=== PATIENT | male | born 1950 | race Caucasian/White ===

== ENCOUNTER 2019-08-13 | Observation (INO) | payer MEDICARE ==
[~2019-08-13] VITALS: Ht 185.4 cm; Wt 91.6 kg
[2019-08-13] VITALS (8 sets, daily range): BP systolic 130–180; BP diastolic 69–85
--- NOTE | 2019-08-13 | NUR ---
RECEIVED PATIENT FROM [facility]. PATIENT IS AAOX3. RESP EVEN AND UNLABORED. NO ACUTE DISTRESS AT THIS TIME. PATIENT DENIES OF ANY PAIN OR DISCOMFORT AT THIS TIME. ORIENTED TO ROOM. ASSESSMENT DONE. CALL LIGHT WITHIN REACH. INSTRUCT PATIENT TO CALL FOR ASSISTANCE. PATIENT IS NPO AT MIDNIGHT. BED LOW/LOCKED. CONTINUE TO MONITOR CLOSELY
--- OUTSIDE RECORDS SUMMARY | 2019-08-13 00:03 | XMS REPORT ---
Author Author [facility] Address Unknown Phone Unavailable Care Team Providers Care Prepper Name Role Phone Unavailable Unavailable Problems This patient has no known problems. Allergies, Adverse Reactions, Alerts This patient has no known allergies or adverse reactions. Medications This patient has no known medications. Results Test Description Test Time Test Comments Text Results Atomic Results Result Comments Urine Culture 2019-07-26 08:14:14 No growth at 2 days. Urinalysis Microscopic 2019-07-25 12:14:55 UA WBC (test code=UA WBC) 11-20 /HPF 0-5 UA RBC (test code=UA RBC) 5-10 /HPF 0-4 UA Bacteria (test code=UA Bacteria) 1+ /HPF Negative UA Yeast (test code=UA Yeast) Few /HPF None Urinalysis with Culture, if [id number] 12:09:05* Test Item Value Reference Range Comments UA Color (test code=UA Color) Yellow Yellow UA Appear (test code=UA Appear) Clear Clear UA pH (test code=UA pH) 6.0 5.0-8.5 UA Spec Grav (test code=UA Spec Grav) 1.015 SGU 1.005-1.030 UA Glucose (test code=UA Glucose) Negative Negative UA Bili (test code=UA Bili) Negative Negative UA Ketones (test code=UA Ketones) Negative Negative UA Blood (test code=UA Blood) 2+ Negative UA Protein (test code=UA Protein) 1+ Negative UA Urobilinogen (test code=UA Urobilinogen) 2 EU/dL >0.2 UA Nitrite (test code=UA Nitrite) Negative Negative UA Leuk Est (test code=UA Leuk Est) 2+ Negative UA Micro Ind? (test code=UA Micro Ind?) Indicated Not Indicated
[2019-08-13] MEDS ORDERED: ACCUPRIL20 MG PO (00:38)
[2019-08-13] MEDS ORDERED: PANTOPRAZOLE SO40 MG PO (00:38)
[2019-08-13 05:09] LABS: BASOPHILS % 0.3 % (0.0-1.0); EOSINOPHILS # (AUTO) 0.3 (0.0-0.4); EOSINOPHILS % 5.1 % (0.0-6.0); HEMATOCRIT 38.3 % (38.2-49.6); HEMOGLOBIN 13.1 g/dL (14.0-18.0); LYMPHOCYTES # (AUTO) 1.8 (1.0-3.2); LYMPHOCYTES % 27.2 % (18.0-39.1); MEAN CORPUSCULAR HGB CONC 34.2 g/dL (31-35); MEAN CORPUSCULAR VOLUME 90.8 fL (81-99); MONOCYTES # (AUTO) 0.6 (0.2-0.8); MONOCYTES % 8.5 % (4.4-11.3); NEUTROPHILS # (AUTO) 3.8 (2.1-6.9); NEUTROPHILS % 58.7 % (38.7-80.0); PLATELET COUNT 172 x10e3/uL (140-360); RED BLOOD COUNT 4.22 x10e6/uL (4.3-5.7); RED CELL DISTRIBUTION WIDTH 13.2 % (11.7-14.4)
[2019-08-13 05:28] LABS: ALANINE AMINOTRANSFERASE 36 IU/L (0-55); ALBUMIN 3.6 g/dL (3.5-5.0); ALBUMIN/GLOBULIN RATIO 1.4 (0.8-2.0); ALKALINE PHOSPHATASE 76 IU/L (40-150); ANION GAP 9.4 mmol/L (8-16); BLOOD UREA NITROGEN 14 mg/dL (7-26); BUN/CREATININE RATIO 13 (6-25); CALCIUM 8.6 mg/dL (8.4-10.2); CARBON DIOXIDE 25 mmol/L (22-29); CHLORIDE 112 mmol/L (98-107); CREATININE, SERUM 1.07 mg/dL (0.72-1.25); EST GLOMERULAR FILTRATION RATE > 60 ML/MIN (60-); GLUCOSE 108 mg/dL (74-118); POTASSIUM 3.4 mmol/L (3.5-5.1); SODIUM 143 mmol/L (136-145)
--- NOTE | 2019-08-13 05:53 | NUR ---
PAGED DR KHANNA FOR CONSULT.
--- NOTE | 2019-08-13 05:59 | NUR ---
SPOKE TO DR KHANNA ABOUT THE CONSULTATION.
[2019-08-13] MEDS: CEFTRIAXONE SOD 1 GM/NS 50 ML 50 ML IV SCH (06:17)
[2019-08-13] MEDS ORDERED: SODIUM CHLORIDE 0.9% 250ML 250 ML ONE (06:22)
[2019-08-13] MEDS: KETOROLAC TROMETHAMINE 30 MG/ML VIAL IM PRN ×2 (06:29→19:27)
--- NOTE | 2019-08-13 08:00 | NUR ---
Patient straining all urine to collect stone if any pass. patient aware to call nurse if anything collects in the strainer. urine sent to lab for studies.
[2019-08-13] MEDS: PANTOPRAZOLE SOD 40 MG TABEC PO SCH (08:28)
[2019-08-13] MEDS: QUINAPRIL HCL 20 MG TAB PO SCH ×2 (08:28→17:04)
[2019-08-13] MEDS: HYDROMORPHONE 1MG/1ML INJ IV PRN ×2 (08:55→21:44)
--- NOTE | 2019-08-13 09:03 | Consultation ---
DATE OF CONSULTATION: 08/13/2019 Urology Consultation Consultation is called by [facility]. CHIEF COMPLAINT AND REASON FOR CONSULTATION: Kidney stone, ureteral stone. 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 He has never had any imaging. Upon presenting to the outpatient [facility], he is complaining of left-sided flank pain, burning, and difficulty urinating. Urinalysis did show positive urinary tract infection. A CAT scan revealed 7 mm distal left ureteral calculus with mild hydronephrosis, bilateral lower pole 6 mm renal calculi, bilateral renal cysts. The patient was admitted for pain control and infections. Denied fevers. No chills. Denied nausea or vomiting. PAST MEDICAL HISTORY: Hypertension, strep in the wound in the right kidney, multiple kidney stones, status post prior kidney surgery, status post cholecystectomy. MEDICATIONS: Please see MAR. ALLERGIES: NKDA. SOCIAL HISTORY: Denied smoking or drinking. FAMILY HISTORY: Denied urologic stones or malignancies. REVIEW OF SYSTEMS: Noncontributory other than problems mentioned above for 12-organ systems. PHYSICAL EXAMINATION: GENERAL: An elderly male, in no acute distress. VITAL SIGNS: Currently temperature 96.7, pulse 57, respirations 18, and blood pressure 179/83. HEENT: Sclerae anicteric. NECK: Supple. BACK: Without costovertebral angle tenderness bilaterally. ABDOMEN: Soft. It is nontender. No palpable mass. No palpable hernias. No palpable adenopathy. : Normal external genitalia. EXTREMITIES: No edema. Normal extremities. PSYCH: Alert. Mood appropriate. SKIN: Intact. Normal color. PERTINENT LABORATORY DATA: CT scan revealing a right lower pole 6 mm stone, left lower pole 6 mm stone, left distal 7 mm ureteral calculus, left hydronephrosis, bilateral renal cysts. Urinalysis; positive nitrite, positive leukocyte, positive blood. Sodium 143, potassium 3.4, chloride 112, bicarb 25, BUN 14, creatinine 1.07, and glucose 108. Hemoglobin 13, hematocrit 38, platelet count 132,000, and white cell count 6460. IMPRESSION: 1. Bilateral renal calculi. 2. Left ureteral calculi. 3. Left hydronephrosis. 4. Urinary tract infection. 5. Microscopic hematuria. 6. Hypertension. 7. Hypokalemia. 8. Hyperchloremia. 9. Bilateral renal cysts. PLAN: Employ brief trial passage. Should this fail, hydration and IV antibiotics. Should this fail, the patient may need an emergent ureteroscopy versus stent placement. MD JOSÉ Ruby/MODL /[id number]
[2019-08-13 09:38] LABS: CLARITY,URINE CLOUDY (CLEAR); COLOR,URINE YELLOW (YELLOW); LEUKOCYTE ESTERASE ,URINE LARGE (NEGATIVE); NITRITE,URINE POSITIVE (NEGATIVE); PROTEIN,URINE DIPSTICK >=300 (NEGATIVE)
[2019-08-13 09:39] LABS: BILIRUBIN,URINE SMALL (NEGATIVE); KETONES,URINE TRACE (NEGATIVE); URINE UROBILINOGEN 1 mg/dL (0.2 - 1)
[2019-08-13 09:41] LABS: BACTERIA,URINE FEW /HPF; EPITHELIAL CELLS,URINE FEW /LPF; RBC,URINE >50 /HPF (0-5); WBC,URINE (MAN) >50 /HPF (0-5)
--- NOTE | 2019-08-13 10:00 | NUR ---
ASSESSMENT: No concerns Pt relieved to be in hospital and receiving treatment. Pt states he was returning from [place] when he became ill. Intervention: Provided hospitality and empathic listening. Facilitate identification of emotions and illness review. Outcome: Provided information on how to contact bakery team leader, if needed. No need to follow at this time. KARINE CROSS Sales Systems Engineer Spiritual Care Department O: [phone]
[2019-08-14] VITALS (8 sets, daily range): BP systolic 128–189; BP diastolic 68–102
[2019-08-14] MEDS ORDERED: SODIUM CHLORIDE 0.9% 250ML 250 ML ONE (05:26)
[2019-08-14] MEDS: CEFTRIAXONE SOD 1 GM/NS 50 ML 50 ML IV SCH (05:57)
[2019-08-14 05:58] LABS: BASOPHILS % 0.3 % (0.0-1.0); EOSINOPHILS # (AUTO) 0.4 (0.0-0.4); EOSINOPHILS % 7.4 % (0.0-6.0); HEMOGLOBIN 12.7 g/dL (14.0-18.0); LYMPHOCYTES # (AUTO) 1.3 (1.0-3.2); LYMPHOCYTES % 22.2 % (18.0-39.1); MEAN CORPUSCULAR HEMOGLOBIN 31.8 pg (28-32); MEAN CORPUSCULAR HGB CONC 34.3 g/dL (31-35); MEAN CORPUSCULAR VOLUME 92.5 fL (81-99); MONOCYTES # (AUTO) 0.4 (0.2-0.8); MONOCYTES % 7.6 % (4.4-11.3); NEUTROPHILS # (AUTO) 3.6 (2.1-6.9); NEUTROPHILS % 62.3 % (38.7-80.0); PLATELET COUNT 154 x10e3/uL (140-360); RED CELL DISTRIBUTION WIDTH 13.2 % (11.7-14.4)
[2019-08-14 06:33] LABS: ALANINE AMINOTRANSFERASE 39 IU/L (0-55); ALBUMIN 3.4 g/dL (3.5-5.0); ALBUMIN/GLOBULIN RATIO 1.4 (0.8-2.0); ALKALINE PHOSPHATASE 70 IU/L (40-150); ANION GAP 7.6 mmol/L (8-16); BLOOD UREA NITROGEN 17 mg/dL (7-26); BUN/CREATININE RATIO 16 (6-25); CALCIUM 8.4 mg/dL (8.4-10.2); CARBON DIOXIDE 27 mmol/L (22-29); CHLORIDE 111 mmol/L (98-107); CREATININE, SERUM 1.06 mg/dL (0.72-1.25); EST GLOMERULAR FILTRATION RATE > 60 ML/MIN (60-); GLUCOSE 99 mg/dL (74-118); POTASSIUM 3.6 mmol/L (3.5-5.1); SODIUM 142 mmol/L (136-145)
--- NOTE | 2019-08-14 07:00 | NUR ---
BEDSIDE SHIFT REPORT RECEIVED FROM [employer] DEVELOPER NURSE. PT DENIES NEEDS AT THIS TIME.
[2019-08-14] MEDS: PANTOPRAZOLE SOD 40 MG TABEC PO SCH (08:40)
[2019-08-14] MEDS: QUINAPRIL HCL 20 MG TAB PO SCH ×2 (08:40→17:40)
[2019-08-14] MEDS: KETOROLAC TROMETHAMINE 30 MG/ML VIAL IM PRN ×2 (08:41→20:37)
--- NOTE | 2019-08-14 10:03 | Diagnostic Imaging Report ---
EXAM: Abdomen Radiograph 1 View(s) INDICATION: ^pain ^[id number] ^0935 ^Y COMPARISON: None FINDINGS: No abnormalities in the lower chest. No lines or tubes. Normal volume of stool in the colon. No dilated loops of bowel. No pneumoperitoneum. No abnormal abdominal calcifications.. No acute osseous abnormality. IMPRESSION: No acute abdominal radiographic abnormality. Signed by: Ramon Cr MD on 08/14/2019 10:00 AM
[2019-08-14] MEDS ORDERED: IOPAMIDOL 300MG/ML 50ML INFUS..BTL IV ONE (14:30)
[2019-08-14] MEDS ORDERED: DEXAMETHASONE SOD PHOS INJ 4 MG/ML VIAL ONE (15:14)
[2019-08-14] MEDS ORDERED: SEVOFLURANE INHAL SOLN 250 ML PEN BTL ONE (15:14)
[2019-08-14] MEDS ORDERED: ONDANSETRON HCL INJ 2MG/ML 2ML 2 MG/ML VIAL ONE (15:14)
[2019-08-14] MEDS ORDERED: PROPOFOL IV EMULSION 10 MG/ML 20 ML VIAL ONE (15:14)
[2019-08-14] MEDS ORDERED: LIDOCAINE HCL 2% LOCAL INJ 5 ML SDV VIAL INJ ONE (15:14)
[2019-08-14] MEDS ORDERED: FENTANYL CITRATE/PF 100MCG/2 ML INJ ONE ×2 (15:19→16:01)
--- NOTE | 2019-08-14 17:46 | Operative Report ---
DATE OF PROCEDURE: 08/14/2019 SURGEON: Lencho Oswald MD PREOPERATIVE DIAGNOSES: 1. Hematuria. 2. Left-sided hydronephrosis. 3. Left ureteral calculus. 4. Bilateral renal calculi. POSTOPERATIVE DIAGNOSES: 1. Hematuria. 2. Left-sided hydronephrosis. 3. Left ureteral calculus. 4. Bilateral renal calculi. PROCEDURES: 1. Cystourethroscopy with left ureteral stent placement. 2. Interpretation of retrograde pyelography. ANESTHESIA: General. ESTIMATED BLOOD LOSS: Minimal. COMPLICATIONS: None. INDICATIONS FOR PROCEDURE: Mr. Langford is a very pleasant 68-year-old male with acute severe left-sided flank pain. Denied fevers. No chills. Denied nausea or vomiting. The patient has been admitted to the hospital, requiring IV narcotics and has failed a trial of passage. Due to the risk of blocked kidney,infections,renal failure even we feel that the procedure iis immediately medically necessary to correct a serious medical condition. Without immediate performance of the procedure there would be serious risk of adverse medical consequences even possibly . He and I had a long discussion about alternatives, risks, and benefits including doing nothing, ureteroscopy, stent placement, percutaneous surgery or open surgery. He voiced understanding of the options, alternatives, risks, and benefits, and elected to proceed. PROCEDURE IN DETAIL: After informed consent was obtained, the patient was taken to the operative suite, placed in supine on the operating table, underwent general anesthesia by the Anesthesia Service, placed in dorsal lithotomy position and sterilely prepped and draped for cystoscopy. A 22.5-Nicaraguan cystoscope was inserted per urethra. There was massive trilobar prostatic hypertrophy with enlarged median lobe. With moderate difficulty, the left ureteral orifice was catheterized. Retrograde pyelogram was performed revealing a very large 10 x 7 mm distal ureteral calculus with J hooking in the distal ureter. The catheter was advanced over a guidewire and retrograde pyelogram was performed revealing a dense obstruction. With moderate difficulty, this guidewire was catheterized proximally. Upon doing this, purulent material shot out of the ureteral orifice indicating infected setting. A 7 x 28 cm ureteral stent was deployed with a coil in renal pelvis and coil in the gallbladder. Approximately, 4 inches string was tied so that it could be dressed in the urethra and not disturb the prostatic bed. The bladder was drained. The patient was awakened from anesthesia and transported to the recovery room in excellent condition. Supervision of fluoroscopy and interpretation of retrograde pyelography: I was present for the entire procedure and supervised fluoroscopy. There was no radiologist present. Attention was turned towards the left ureteral orifice and catheterized. Retrograde pyelogram was performed revealing J hooking distally, 10 x 7 mm distal ureteral calculus, proximal hydronephrosis, bilateral renal calculi. Lencho Oswald MD ES/MODL /[id number]
[2019-08-15] VITALS: BP 160/77
[2019-08-15 04:00] VITALS: BP 195/97
[2019-08-15] MEDS: KETOROLAC TROMETHAMINE 30 MG/ML VIAL IM PRN (05:00)
[2019-08-15] MEDS ORDERED: TAMSULOSIN HCL 0.4 MG CAP PO SCH ×2 (05:45→21:00)
[2019-08-15] MEDS: CEFTRIAXONE SOD 1 GM/NS 50 ML 50 ML IV SCH (05:55)
--- NOTE | 2019-08-15 07:00 | NUR ---
BEDSIDE SHIFT REPORT RECEIVED FROM CREDIT OPERATIONS PROCESSOR NURSE. PT DENIES NEEDS AT THIS TIME.
[2019-08-15 07:51] VITALS: BP 160/88
[2019-08-15 08:06] VITALS: BP 160/88
[2019-08-15] MEDS: QUINAPRIL HCL 20 MG TAB PO SCH ×2 (08:56→17:23)
[2019-08-15] MEDS: PANTOPRAZOLE SOD 40 MG TABEC PO SCH (08:56)
[2019-08-15 11:05] VITALS: BP 110/82
[2019-08-15 15:25] VITALS: BP 105/62
[2019-08-15] MEDS ORDERED: FLOMAX0.4 MG PO (17:09)
[2019-08-15] MEDS ORDERED: BACTRIM DS TAB1 EACH PO (17:10)
--- NOTE | 2019-08-16 05:48 | Discharge Summary ---
DISCHARGE DIAGNOSIS: Left kidney stone, status post stents. HISTORY OF PRESENT ILLNESS/HOSPITAL COURSE: The patient is a gentleman, who presented with some left flank pain and was found to have bilateral kidney stones, but one 7 mm stone in the left ureter was causing significant pain as well as potential evidence of urinary tract infection. So, the patient was brought and given a trial of passage, which did not work, so patient then went to the OR under the care of Dr. Oswald, who performed a stent and will have outpatient therapy for stone extraction. Postoperatively, patient did well. Once he was cleared by Urology, patient wanted to go home, so he was discharged home with p.o. antibiotics for continuation of the UTI and follow up with Dr. Oswald in 1 to 2 weeks as well as his PCP. Please see hospital chart for details. MD MAGDALENA Chino/JOSE /[id number]
== END 2019-08-15 17:44 | disposition home or self-care (01) ==
LOC: MED/SURG2
PROVIDERS: ADMIT Internal Medicine; ATTEND Internal Medicine
DX: N20.0 Calculus of kidney (principal); N17.9 Acute kidney failure, unspecified; N20.1 Calculus of ureter; N13.30 Unspecified hydronephrosis; N39.0 Urinary tract infection, site not specified; E87.6 Hypokalemia; N28.1 Cyst of kidney, acquired; E87.8 Other disorders of electrolyte and fluid balance, not elsewhere classified; N40.0 Benign prostatic hyperplasia without lower urinary tract symptoms; I10 Essential (primary) hypertension; K21.9 Gastro-esophageal reflux disease without esophagitis
CPT/HCPCS: 36415 ×2; 52332; 74018; 74420; 80053 ×2; 81001; 85025 ×2; 87086; C1758; C1769; C2617; G0378 ×3; J0696 ×3; J1100; J1170; J1885 ×3; J2001; J2405; J2704; J3010; J7050 ×2; Q9967; S0164 ×3

== ENCOUNTER → 2019-10-01 | Day surgery (SDC) | payer MEDICARE, OTHER ==
[2019-09-27 10:50] LABS: BASOPHILS % 0.4 % (0.0-1.0); EOSINOPHILS # (AUTO) 0.2 (0.0-0.4); EOSINOPHILS % 2.7 % (0.0-6.0); HEMATOCRIT 40.9 % (38.2-49.6); HEMOGLOBIN 14.2 g/dL (14.0-18.0); LYMPHOCYTES # (AUTO) 1.6 (1.0-3.2); LYMPHOCYTES % 18.3 % (18.0-39.1); MEAN CORPUSCULAR HEMOGLOBIN 30.9 pg (28-32); MEAN CORPUSCULAR HGB CONC 34.7 g/dL (31-35); MEAN CORPUSCULAR VOLUME 89.1 fL (81-99); MONOCYTES # (AUTO) 0.5 (0.2-0.8); MONOCYTES % 5.7 % (4.4-11.3); NEUTROPHILS # (AUTO) 6.2 (2.1-6.9); NEUTROPHILS % 72.8 % (38.7-80.0); PLATELET COUNT 193 x10e3/uL (140-360); RED BLOOD COUNT 4.59 x10e6/uL (4.3-5.7); RED CELL DISTRIBUTION WIDTH 13.2 % (11.7-14.4)
--- NOTE | 2019-09-27 10:54 | Diagnostic Imaging Report ---
X-ray chest PA and lateral History: Preop kidney stone Findings: Normal cardiomediastinal silhouette, diaphragms, lung foster, pleura, visualized skeleton and upper abdomen. Impression: Normal exam. Signed by: Quan Mcgovern MD on 09/27/2019 10:51 AM
[~2019-10-01] MED LIST: ACCUPRIL20 MG PO; BACTRIM DS TAB1 EACH PO; CEFTRIAXONE SOD 1 GM/NS 50 ML 50 ML IV ONE; DEXAMETHASONE SOD PHOS INJ 4 MG/ML VIAL ONE; FENTANYL CITRATE/PF 100MCG/2 ML INJ ONE; FLOMAX0.4 MG PO; HYDRALAZINE HCL 20 MG/ML VIAL ONE; IOPAMIDOL 300MG/ML 50ML INFUS..BTL IV ONE; LIDOCAINE HCL 2% LOCAL INJ 5 ML SDV VIAL INJ ONE; MIDAZOLAM HCL 2 MG/2 ML VIAL ONE; ONDANSETRON HCL INJ 2MG/ML 2ML 2 MG/ML VIAL ONE; PANTOPRAZOLE SO40 MG PO; PROPOFOL IV EMULSION 10 MG/ML 20 ML VIAL ONE; SEVOFLURANE INHAL SOLN 250 ML PEN BTL ONE
[2019-10-01 11:30] VITALS: BP 164/83
--- NOTE | 2019-10-09 16:09 | Operative Report ---
DATE OF PROCEDURE: 10/01/2019 SURGEON: Lencho Oswald MD PREOPERATIVE DIAGNOSES: 1. Indwelling left ureteral renal stent. 2. Left ureteral calculus. POSTOPERATIVE DIAGNOSES: 1. Indwelling left ureteral renal stent. 2. Left ureteral calculus. PROCEDURES: 1. Cystourethroscopy with complicated removal of a left indwelling stent (entirely separate procedure complicated secondary to stent encrustation). 2. Left-sided ureteroscopy with laser lithotripsy (entirely separate procedure with explicit purpose of ridding the patient of the left ureteral calculus). 3. Supervision of fluoroscopy for both ureteroscopy and stent removal portion. 4. Interpretation of retrograde pyelography. ANESTHESIA: General. ESTIMATED BLOOD LOSS: Minimal. COMPLICATIONS: None. INDICATIONS FOR PROCEDURE: Mr. Langford is a very pleasant, noncompliant, 68-year-old male, who had a stent placed, now presents for definitive management of ureteral calculus. He and I had a long discussion about alternatives, risks, and benefits including doing nothing, shock wave lithotripsy, ureteroscopy, percutaneous surgery or open surgery. He voiced understanding of the options, alternatives, risks, and benefits. He elected to proceed with ureteroscopy and laser lithotripsy. PROCEDURE IN DETAIL: After informed consent was obtained, the patient was taken to the operative suite, place supine on the operating table, underwent general anesthesia by Anesthesia Service, place in dorsal lithotomy position, sterilely prepped and draped for cystoscopy. A 21-Moroccan cystoscope was inserted per urethra and normal urethra was noted. Panendoscopy of bladder revealed no tumors, no stones. An encrusted stent was seen extruding for left ureteral orifice. A guidewire was inserted alongside the stent. Stent was removed with moderate difficulty due to encrustations of the stent. The ureteroscope was advanced to the level offending stone. Utilizing 365 micron laser fiber, the stone was obliterated with multiple fragments, small enough to pass. The ureteroscope was advanced proximally, as no stones were seen. Safety wire was removed. The bladder was drained. The patient was awakened from anesthesia and transported to the recovery room in excellent condition. Supervision of fluoroscopy: I was present for the entire procedure and supervised fluoroscopy for both ureteroscopic portion as well as stent removal portion. No radiologist present. MD JOSÉ Ruby/JIGNAL /[id number]
== END | disposition home or self-care (01) ==
LOC: OR 05:15
PROVIDERS: ATTEND Urology
DX: N20.1 Calculus of ureter (principal); Z46.6 Encounter for fitting and adjustment of urinary device; N39.0 Urinary tract infection, site not specified; N13.30 Unspecified hydronephrosis; N40.1 Benign prostatic hyperplasia with lower urinary tract symptoms; N13.8 Other obstructive and reflux uropathy; I10 Essential (primary) hypertension; K21.9 Gastro-esophageal reflux disease without esophagitis; R00.1 Bradycardia, unspecified; Z01.810 Encounter for preprocedural cardiovascular examination; Z01.812 Encounter for preprocedural laboratory examination; Z01.818 Encounter for other preprocedural examination; Z11.59 Encounter for screening for other viral diseases; Z87.891 Personal history of nicotine dependence
CPT/HCPCS: 36415; 52353; 71046; 85025; 87635; 88300; 93005; C1758; C1769; J0360; J0696; J1100; J2001; J2250; J2405; J2704; J3010; Q9967; 76000